=== PATIENT | female | born 1955 | race Caucasian/White ===

== ENCOUNTER → 2022-10-09 | Outpatient (CLI) | payer MEDICARE, SELFPAY ==
[2022-10-09 13:00] LABS: D-Dimer Quantitative (DVT/PE) 0.47 FEU/ug/m (0.27-0.49)
== END | disposition home or self-care (01) ==
PROVIDERS: Referring Provider Family Medicine; Visit Provider Family Medicine
DX: R04.2 Hemoptysis (principal); R06.02 Shortness of breath
CPT/HCPCS: 85379

== ENCOUNTER 2024-02-07 10:30 | Outpatient (RCR) | payer MEDICARE, SELFPAY ==
--- NOTE | 2024-01-20 14:13 | HP.PTEVAL_ITS ---
Patient's Visit Information Visit Information Visit Information: FUNMI IVERSON is a 68 year old F referred to Physical Therapy by ERIC Maguire with a diagnosis of Vertigo. Date of Evaluation: 01/20/24 Physical Therapist: LOREN Correia Visit Plan Frequency: 1-2x /Week Duration: 3 Weeks Plan: Re check L Hallpike, may want to check VOR as she was having some issues with dizziness with TV's and scrolling words on the bottom making her dizzy Subjective Subjective: About 4-5 months ago she started with vertigo. This has been hanging on. It is not as intense as what it was when it started but it is still there. It used to be that the room would spin if rolled on the L side or if she got up in the middle of the night she would have to sit on the edge of the bed...not as bad anymore. But 3 weeks ago she was looking through a storage box and went to stand up and she fell due to dizziness and got dizzy. She will still get some dizziness at times when rolls to the L or if she goes flat onto her back. She has no dizziness now and more dizziness upon movement or if she looks at words across the bottom of a TV screen. No issues scrolling on her phone Objective Objective: + L Hallpike for torsional nystagmus and dizziness that lasted 30 seconds. Treated with L EPLY - L Hallpike the second time for dizziness and nystagmus...when sat up pt was dizzy...not room spinning but lasted about 1 min Re-test one more time L Hallpike and was negative for dizziness and nystagmus. She felt like the wall was moving a little when sat up from testing position. Pt felt off walking out of the clinic but no dizziness Balance/Special Test Scores Dizziness Score: 14 Goals Goal 1:: I HEP Goal Time Frame: 2-4 Weeks Goal 2:: Abolish dizziness Goal Time Frame: 2-4 Weeks Goal 3:: Check VOR Goal Time Frame: 2-4 Weeks Rehabilitation Potential Rehabilitation Potential: Good Anticipated Interventions Patient/Client Instruction: Educate patient on: Condition and Plan of Care For the Purpose of:: To improve nutrient delivery to tissue, To improve ability to perform ADL's, To increase tolerance to activity/condition/position, To improve gait and locomotor functions, To improve balance and To improve safety with gait Therapeutic Exercise to Include: Strength training, Balance training, Gait and locomotor training and Neuromotor development For the Purpose of:: To improve ability to perform ADL's, To increase tolerance to activity/condition/position, To improve performance and independence with ADL's and To improve balance Manual Therapy Techniques to Include: Other Comment: Eply For the Purpose of:: To improve ability of physical actions for home/community/work/leisure, To improve gait and locomotor functions, To improve balance and To improve safety with gait Text: Thank you for the opportunity to evaluate your patient. For Medicare and Medicare HMO plans, please review the plan of care and approve it. It will need to be FAXED BACK to us at [phone] for Medicare purposes. For Medicare only, by signing this I certify the plan of care. Please let me know if there are questions or concerns regarding this plan of care. Physician Signatu re: Date:
--- NOTE | 2024-02-16 14:47 | HP.PT.NRP ---
Patient Information Patient Information: FUNMI IVERSON was seen in my office for initial evaluation on 01/20/24. The following Plan of Care was established for this patient: POC Established Initial Frequency: 1-2x /Week Initial Duration: 3 Weeks Anticipated Interventions Patient/Client Instruction: Educate patient on: Condition and Plan of Care For the Purpose of:: To improve nutrient delivery to tissue, To improve ability to perform ADL's, To increase tolerance to activity/condition/position, To improve gait and locomotor functions, To improve balance and To improve safety with gait Therapeutic Exercise to Include: Strength training, Balance training, Gait and locomotor training and Neuromotor development For the Purpose of:: To improve ability to perform ADL's, To increase tolerance to activity/condition/position, To improve performance and independence with ADL's and To improve balance Manual Therapy Techniques to Include: Other Comment: Eply For the Purpose of:: To improve ability of physical actions for home/community/work/leisure, To improve gait and locomotor functions, To improve balance and To improve safety with gait Last Seen Last Seen: This patient was last seen in our office 02/07/24. Pertinent comments regarding their Physical therapy will appear below: Pt seen two visits of POC and was 95% better treated with positional treatments. She has called to state that she is doing well and will not need a f/u. I will discontinue at this time. At this point I will be discontinuing this patient from physical therapy. I would be happy to see this patient again in the future if found appropriate by the physician. Thank you! Bishnu Becker, DPT, OCS, CSCS Balance/Gait/Functional tests Balance/Special Test Scores Functional Gait Assessment Score: 26 % Disability: 13.3400 Dizziness Score: 14
== END 2024-02-07 19:00 | disposition home or self-care (01) ==
LOC: PT 10:30
PROVIDERS: PCP Family Medicine; Referring Provider Registered Nurse; Visit Provider Registered Nurse
DX: R42 Dizziness and giddiness (principal)
CPT/HCPCS: 97161; 97530